=== PATIENT | male | born 1970 ===

== ENCOUNTER 2018-11-29 18:27 | Emergency (ER) | payer SELFPAY ==
[2018-11-29 18:33] VITALS: BP 158/100; PULSE 138; RESP 20; TEMP 98.8; O2SAT 98
--- NOTE | 2018-11-29 20:42 | ED PDOC ---
HPI: Psych/Substance Abuse Time Seen by Provider: 11/29/18 19:00 Chief Complaint (Nursing): Alcohol Ingestion Chief Complaint (Provider): Alcohol ingestion History Per: Patient History/Exam Limitations: no limitations Modifying Factor(s): Alcohol Associated Symptoms: denies: Suicidal Thoughts, Suicidal Plan Additional Complaint(s): 48yo male, otherwise well with no past medical history, brought to ER by EMS for evaluation due to alcohol intoxication. Patient admits to drinking alcohol today, states he drank 1 bottle of vodka and Carlos Walker; states he did not drink water at all today. Patient states he got into an argument "because I wanted to hug my son but he didn't want to hug me back." He denies any suicidal or homicidal ideation, chest pain or shortness of breath. He denies any drug use. Past Medical History Reviewed: Historical Data, Nursing Documentation, Vital Signs Vital Signs: Last Vital Signs Temp 98.8 F 11/29/18 18:30 Pulse 138 H 11/29/18 18:30 Resp 20 11/29/18 18:30 BP 158/100 H 11/29/18 18:30 Pulse Ox 98 11/29/18 18:30 Primary Care Provider: FAMILY PROVIDER,NO - Medical History PMH: HTN Denies: Chronic Kidney Disease - Surgical History Surgical History: No Surg Hx - Family History Family History: States: No Known Family Hx - Social History Alcohol: Occasional - Allergies Allergies/Adverse Reactions: Allergies Allergy/AdvReac Type Severity Reaction Status Date / Time No Known Allergies Allergy Verified 11/29/18 18:29 Review of Systems ROS Statement: Except As Marked, All Systems Reviewed And Found Negative Cardiovascular: Negative for: Chest Pain Respiratory: Negative for: Shortness of Breath Psych: Negative for: Suicidal ideation Physical Exam - Reviewed Nursing Documentation Reviewed: Yes Vital Signs Reviewed: Yes - Physical Exam Appears: Positive for: No Acute Distress (speaking on cell phone, no acute distress) Head Exam: Positive for: ATRAUMATIC, NORMAL INSPECTION, NORMOCEPHALIC Skin: Positive for: Normal Color Eye Exam: Positive for: EOMI, PERRL Neck: Positive for: Supple Cardiovascular/Chest: Positive for: Tachycardia (regular rate). Negative for: Murmur Respiratory: Positive for: Normal Breath Sounds. Negative for: Respiratory Distress Gastrointestinal/Abdominal: Positive for: Normal Exam, Soft Back: Positive for: Normal Inspection Extremity: Positive for: Normal ROM Neurological/Psych: Positive for: Awake, Alert, Normal Tone, Mood/Affect (calm and cooperative), Gait (steady), patient account liaison II-XII (intact), Other (mild slurred speech due to alcohol). Negative for: Motor/Sensory Deficits - ECG O2 Sat by Pulse Oximetry: 98 (RA) Pulse Ox Interpretation: Normal Medical Decision Making Medical Decision Making: A/P: Alcohol ingestion Patient is calm and cooperative in ER Patient is tachycardic, likely due to dehydration; will give PO fluids Will continue to monitor for sobriety. 915PM HR 119 Patient left prior to treatment completion, was seen by staff dressing and walking out of ER with a family member Scribe Attestation: Documented by Morena Nelson acting as a scribe for Charles Haskins MD. Provider Scribe Attestation: All medical record entries made by the Scribe were at my direction and personally dictated by me. I have reviewed the chart and agree that the record accurately reflects my personal performance of the history, physical exam, medical decision making, and the department course for this patient. I have also personally directed, reviewed, and agree with the discharge instructions and disposition. Disposition - Clinical Impression Clinical Impression: Alcohol abuse - Patient ED Disposition Is Patient to be Admitted: No - Disposition Disposition: Routine/Home Disposition Time: 21:15 Condition: FAIR Forms: Akella (Sinhala)
== END 2018-11-29 21:14 | disposition left against medical advice (07) ==
LOC: H.ER 18:27 → EDBD 18:27 → MERGE 18:27 → H.ER 21:14
DX: F10.10 Alcohol abuse, uncomplicated (principal); I10 Essential (primary) hypertension

== ENCOUNTER 2018-11-30 13:36 | Emergency (ER) | payer SELFPAY ==
[2018-11-30] MEDS ORDERED: Sodium Chloride 0.9% 1,000 ML IV STA (13:50)
[2018-11-30] MEDS ORDERED: Multivitamin (MVI) 10 ML, Thiamine 100 MG, Folic Acid 1 MG in Sodium Chloride 0.9% 1,00... IV ONE (13:51)
--- NOTE | 2018-11-30 14:02 | ED PDOC ---
HPI: Psych/Substance Abuse Time Seen by Provider: 11/30/18 13:43 Chief Complaint (Nursing): Alcohol Ingestion History Per: EMS Additional Complaint(s): Pt. was brought in by EMS as he was found possibly intoxicated outside on the floor. Pt. admits to drinking alcohol. Offers no complaints. Denies fall, trauma. Past Medical History Reviewed: Historical Data, Nursing Documentation, Vital Signs Vital Signs: Last Vital Signs Temp 98.6 F 11/30/18 13:40 Pulse 116 H 11/30/18 13:40 Resp 20 11/30/18 13:40 BP 143/97 H 11/30/18 13:40 Pulse Ox 99 11/30/18 13:40 Primary Care Provider: DoctorAg - Medical History PMH: HTN Denies: Chronic Kidney Disease - Family History Family History: States: Unknown Family Hx - Home Medications Home Medications: Ambulatory Orders Medication Instructions Recorded Losartan [Cozaar] 100 mg PO DAILY 04/17/17 Folic Acid 1 mg PO DAILY #30 tab 04/19/17 Thiamine [Vitamin B1 Tab] 100 mg PO DAILY #30 tab 04/19/17 Famotidine [Pepcid] 20 mg PO DAILY #30 tab 04/21/17 Gabapentin [Neurontin] 300 mg PO BID #60 cap 04/21/17 Losartan [Cozaar] 100 mg PO DAILY #30 tab 04/21/17 Topiramate [Topamax] 50 mg PO BID #60 tab 04/21/17 - Allergies Allergies/Adverse Reactions: Allergies Allergy/AdvReac Type Severity Reaction Status Date / Time No Known Allergies Allergy Verified 11/30/18 13:40 Review of Systems ROS Statement: Except As Marked, All Systems Reviewed And Found Negative Physical Exam - Physical Exam Appears: Positive for: Well, Non-toxic, No Acute Distress Head Exam: Positive for: NORMOCEPHALIC (superficial abrasion noted to R side of forehead and underneath R upper lip without laceration or active bleeding). Negative for: ATRAUMATIC, NORMAL INSPECTION Skin: Positive for: Normal Color, Warm. Negative for: Rash Eye Exam: Positive for: Normal appearance, EOMI, PERRL. Negative for: Periorbital swelling, Periorbital tenderness ENT: Positive for: Normal ENT Inspection, TM Is/Are (no hemotympanum b/l), Other (no facial tenderness, deformity or swelling) Neck: Positive for: Normal, Painless ROM, Supple Cardiovascular/Chest: Positive for: Regular Rate, Rhythm, Chest Non Tender. Negative for: Murmur Respiratory: Positive for: Normal Breath Sounds. Negative for: Respiratory Distress Gastrointestinal/Abdominal: Positive for: Normal Exam (no ecchymosis), Soft. Negative for: Tenderness Back: Positive for: Normal Inspection. Negative for: L CVA Tenderness, R CVA Tenderness, Vertebral Tenderness (including c-spine) Neurological/Psych: Positive for: Awake, Alert, Other (AOB; slurred speech) - Laboratory Results Result Diagrams: 11/30/18 14:10 11/30/18 14:10 - ECG ECG: Positive for: Interpreted By Me ECG Rhythm: Positive for: Sinus Tachycardia. Negative for: ST/T Changes Rate: 103 O2 Sat by Pulse Oximetry: 99 - Progress ED Course And Treament: Labs, CT head and c-spine w/o contrast, IV NS bolus, banana bag ordered. FSBS: [address] head and cervical spine w/o contrast: negative 1740 Pt. still tachycardic Pt. with more alert. Denies chest pain, SOB. Currently getting IV fluids. EKG ordered. Pt. placed on chain maker machine. EKG Sinus tach at [address]-T wave changes. [address] [employer]: SR at [address]-T wave changes. Sleeping comfortably. Easily arousable. Disposition - Clinical Impression Clinical Impression: Head injury, Alcohol intoxication - Patient ED Disposition Is Patient to be Admitted: Transfer of Care (Signed out to Juan DORMAN pending sobriety.) - Disposition Referrals: [facility] [Outside] Disposition Time: 20:00 Condition: FAIR Instructions: Closed Head Injury (DC), Alcohol Poisoning Print Language: COMORAN
[2018-11-30] MEDS ORDERED: Tdap Vaccine 0.5 ml Vial (10-64 yrs) IM ONE ×2 (14:05→14:17)
[2018-11-30 14:15] LABS: BASO # 0.1 K/uL (0.0-0.2); BASO % 1.1 % (0.0-2.0); HEMOGLOBIN 14.6 g/dL (12.0-18.0); LYMPH % 23.5 % (20.0-40.0); MEAN CELL VOLUME 87.3 fl (80.0-94.0); MEAN CORPUSCULAR HEMOGLOBIN 29.1 pg (27.0-31.0); MEAN CORPUSCULAR HGB CONC 33.3 g/dL (33.0-37.0); MONO # 0.6 K/uL (0.0-0.8); MONO % 6.8 % (0.0-10.0); NEUT # 5.9 K/uL (1.8-7.0); NEUT % 68.6 % (50.0-75.0); NRBC % 0.1 % (0.0-0.0); RBC 5.02 Mil/uL (4.40-5.90); WHITE BLOOD COUNT 8.6 K/uL (4.8-10.8)
[2018-11-30 14:47] LABS: ALB/GLOB RATIO 1.4 (1.0-2.1); ALBUMIN 4.3 g/dL (3.5-5.0); ALT/SGPT 42 U/L (21-72); AST/SGOT 61 U/L (17-59); BLOOD UREA NITROGEN 12 mg/dl (9-20); CALCIUM 7.8 mg/dL (8.4-10.2); GFR NON-AFRICAN AMERICAN > 60
--- NOTE | 2018-11-30 16:30 | CT ---
Date of service: 11/30/2018 PROCEDURE: CT HEAD WITHOUT CONTRAST. HISTORY: trauma COMPARISON: None available. TECHNIQUE: Axial computed tomography images were obtained through the head/brain without intravenous contrast. Radiation dose: Total exam DLP = 953.71 mGy-cm. This CT exam was performed using one or more of the following dose reduction techniques: Automated exposure control, adjustment of the mA and/or kV according to patient size, and/or use of iterative reconstruction technique. FINDINGS: HEMORRHAGE: No intracranial hemorrhage. BRAIN: Normal casillas-white matter differentiation and density are appreciated throughout the cerebrum and cerebellum with the brainstem appearing unremarkable as well. There is no mass effect. There is no suspicious extra-axial fluid collection and the midline brain anatomy appears diffusely unremarkable. VENTRICLES: Unremarkable. No hydrocephalus. CALVARIUM: No destructive bony lesion or displaced fracture identified including through the skullbase. PARANASAL SINUSES: Unremarkable as visualized. No significant inflammatory changes. MASTOID AIR CELLS: Unremarkable as visualized. No inflammatory changes. OTHER FINDINGS: None. IMPRESSION: Unremarkable unenhanced head CT.
--- NOTE | 2018-11-30 16:32 | CT ---
Date of service: 11/30/2018 PROCEDURE: CT Cervical Spine without contrast HISTORY: trauma COMPARISON: None available. TECHNIQUE: Axial computed tomography images were obtained of the cervical spine without the use of intravenous contrast. Coronal and sagittal reformatted images were created and reviewed. Radiation dose: Total exam DLP = 439.01 mGy-cm. This CT exam was performed using one or more of the following dose reduction techniques: Automated exposure control, adjustment of the mA and/or kV according to patient size, and/or use of iterative reconstruction technique. FINDINGS: VERTEBRAE: No fracture identified. No spondylolisthesis. Straightened cervical curvature throughout the cervical spine appear unremarkable craniocervical junction with degenerative changes identified at the C1-2 articulation. Odontoid process is intact nevertheless. DISCS/SPINAL CANAL/NEURAL FORAMINA: No significant central canal or neural foraminal stenosis. Discs heights are grossly preserved. PARASPINAL SOFT TISSUES: Unremarkable. OTHER FINDINGS: None. IMPRESSION: Straightened cervical curvature without fracture or spondylolisthesis evident. No destructive bony lesion appreciable.
[2018-11-30 16:49] LABS: URINE BILIRUBIN NEGATIVE (NEGATIVE); URINE BLOOD SMALL (NEGATIVE); URINE CLARITY CLEAR (Clear); URINE COLOR STRAW (YELLOW); URINE GLUCOSE (UA) NEG (NEGATIVE); URINE LEUKOCYTE ESTERASE NEG Leu/uL (Negative); URINE PROTEIN NEGATIVE (NEGATIVE); URINE UROBILINOGEN 0.2-1.0 mg/dL (0.2-1.0)
[2018-11-30 17:35] LABS: BARBITURATES, UR NEGATIVE (NEGATIVE); BENZODIAZEPINES, UR NEGATIVE (NEGATIVE); OPIATES, UR NEGATIVE (NEGATIVE); PHENCYCLIDINE, UR NEGATIVE (NEGATIVE)
[2018-11-30 18:23] VITALS: RESP 18
[2018-11-30 18:27] VITALS: PULSE 103
--- NOTE | 2018-11-30 20:23 | ED PDOC ---
- Laboratory Results Result Diagrams: 11/30/18 14:10 11/30/18 14:10 Lab Results: Total Bilirubin 0.5 mg/dl (0.2-1.3) 11/30/18 14:10 AST 61 U/L (17-59) H 11/30/18 14:10 ALT 42 U/L (21-72) 11/30/18 14:10 Alkaline Phosphatase 71 U/L (38-126) 11/30/18 14:10 Total Protein 7.3 G/DL (6.3-8.2) 11/30/18 14:10 Albumin 4.3 g/dL (3.5-5.0) 11/30/18 14:10 Globulin 3.1 gm/dL (2.2-3.9) 11/30/18 14:10 Albumin/Globulin Ratio 1.4 (1.0-2.1) 11/30/18 14:10 Urine Color Straw (YELLOW) 11/30/18 16:40 Urine Clarity Clear (Clear) 11/30/18 16:40 Urine pH 8.0 (5.0-8.0) 11/30/18 16:40 Ur Specific [place] 1.008 (1.003-1.030) 11/30/18 16:40 Urine Protein Negative mg/dL (NEGATIVE) 11/30/18 16:40 Urine Glucose (UA) Neg mg/dL (NEGATIVE) 11/30/18 16:40 Urine Ketones Negative mg/dL (NEGATIVE) 11/30/18 16:40 Urine Blood Small (NEGATIVE) 11/30/18 16:40 Urine Nitrate Negative (NEGATIVE) 11/30/18 16:40 Urine Bilirubin Negative (NEGATIVE) 11/30/18 16:40 Urine Urobilinogen 0.2-1.0 mg/dL (0.2-1.0) 11/30/18 16:40 Ur Leukocyte Esterase Neg Arnold/uL (Negative) 11/30/18 16:40 Urine RBC (Auto) 1 /hpf (0-3) 11/30/18 16:40 Urine Microscopic WBC < 1 /hpf (0-5) 11/30/18 16:40 - ECG O2 Sat by Pulse Oximetry: 99 - Progress ED Course And Treament: Patient re-evaluated at 21:00. Noted with steady gait and requests to be discharged. Disposition - Clinical Impression Clinical Impression: Head injury, Alcohol intoxication - POA Present On Arrival: None - Disposition Referrals: [facility] [Outside] Disposition: Routine/Home Disposition Time: 20:54 Condition: FAIR Instructions: Closed Head Injury (DC), Alcohol Poisoning Print Language: URDU
[2018-11-30 21:05] VITALS: BP 145/85; TEMP 98.4
--- NOTE | 2018-12-01 13:01 | CARD ---
APPROVED REPORT Date of service: 11/30/2018 EKG Measurement Heart [id number] <Conclusion> Sinus tachycardia Nonspecific T wave abnormality Abnormal ECG
[2018-12-01 21:03] VITALS: O2SAT 99
== END 2018-11-30 21:12 | disposition home or self-care (01) ==
LOC: H.ER 13:36
DX: S09.90XA Unspecified injury of head, initial encounter (principal); F10.129 Alcohol abuse with intoxication, unspecified; I10 Essential (primary) hypertension
CPT/HCPCS: 70450; 72125; 80053; 81003; 82948; 85025; 90471; 90715; 93005; 96360; 96361; 99285; G0480; J3411; J7030